=== PATIENT | male | born 1985 | race Two or more races ===

== ENCOUNTER 2022-05-28 19:29 | Emergency (ER) | payer SELFPAY ==
[~2022-05-28] VITALS: Ht 167.6 cm; Wt 69.4 kg
--- NOTE | 2022-05-28 20:04 | NUR ---
[facility] AT PT'S BEDSIDE
[2022-05-28 20:15] VITALS: BP 144/79
--- NOTE | 2022-05-28 20:51 | NUR ---
Patient discharged to home in stable condition. Written and verbal after care instructions given. Patient verbalizes understanding of instruction.
== END 2022-05-28 20:54 | disposition home or self-care (01) ==
LOC: ER 19:31
DX: R00.2 Palpitations (principal); Z60.2 Problems related to living alone
CPT/HCPCS: 71045-TC